=== PATIENT | female | born 1960 | race Caucasian/White ===

== ENCOUNTER 2022-11-25 15:40 | Emergency (ER) | payer BC ==
[~2022-11-25] VITALS: Ht 157.5 cm; Wt 62.6 kg
[2022-11-25] MEDS ORDERED: IBUPROFEN 600 MG TAB PO STA (16:21)
[2022-11-25] MEDS ORDERED: PREDNISONE 20 MG TAB PO ONE (16:30)
[2022-11-25] MEDS ORDERED: ONDANSETRON HCL 4 MG ORAL DISINTEGRATING TAB PO ONE (16:30)
[2022-11-25] MEDS ORDERED: PREDNISONE 20 MG TAB ONE (16:40)
[2022-11-25] MEDS ORDERED: ONDANSETRON HCL 4 MG ORAL DISINTEGRATING TAB ONE (16:41)
[2022-11-25] MEDS ORDERED: IBUPROFEN 600 MG TAB ONE (16:41)
[2022-11-25 17:17] LABS: STREPTOCOCCUS GRP A ANTIGEN NEGATIVE (NEGATIVE)
[2022-11-25] MEDS ORDERED: PREDNISONE20 MG PO (18:41)
[2022-11-25] MEDS ORDERED: IBUPROFEN600 MG PO (18:41)
[2022-11-25] MEDS ORDERED: ONDANSETRON ODT4 MG PO (18:41)
[2022-11-25] MEDS ORDERED: BENZONATATE100 MG PO (18:41)
== END 2022-11-25 18:55 | disposition home or self-care (01) ==
LOC: ER 15:46
DX: R11.2 Nausea with vomiting, unspecified (principal); J06.9 Acute upper respiratory infection, unspecified; R51.9 Headache, unspecified; I10 Essential (primary) hypertension; K21.9 Gastro-esophageal reflux disease without esophagitis; Z20.822 Contact with and (suspected) exposure to COVID-19
CPT/HCPCS: 83518; 87070; 99283; J7512; Q0126; U0002